=== PATIENT | male | born 1965 | race Caucasian/White ===

== ENCOUNTER 2024-01-26 07:24 | Emergency (ER) | payer OTHER ==
[~2024-01-26] VITALS: Ht 177.8 cm; Wt 79.0 kg
[2024-01-26] MEDS: TETanus/Pertussis (Acell)/Diphther VAC/PF (Tdap-Adult) 0.5ml syringe IMVAC ONE (07:49)
[2024-01-26] MEDS: LIDOcaine 1%/PF 5ML 10 MG/ML VIAL SQ ONE (07:53)
[2024-01-26] MEDS ORDERED: ceFAZolin 1gm IM kit IM ONE (08:15)
[2024-01-26] MEDS: ceFAZolin/D5W- 1GM premix 50 ML IV ONE (08:52)
[2024-01-26] MEDS: HYDROcodone/acetaminophen 5mg/325mg tablet PO ONE (09:45)
[2024-01-26] MEDS ORDERED: HYDR-3965 PO (09:50)
[2024-01-26] MEDS ORDERED: CEPH500C82 PO (09:50)
[2024-01-26 10:02] VITALS: BP 132/72; PULSE 78; RESP 14; TEMP 98.4; O2SAT 98
== END 2024-01-26 10:21 | disposition home or self-care (01) ==
LOC: ER 07:25
DX: S62.621A Displaced fracture of middle phalanx of left index finger, initial encounter for closed fracture (principal); Z79.2 Long term (current) use of antibiotics; W45.8XXA Other foreign body or object entering through skin, initial encounter; Y93.89 Activity, other specified; Y92.89 Other specified places as the place of occurrence of the external cause; Y99.8 Other external cause status
CPT/HCPCS: 12002; 73140; 90471; 90715; 96374; 99284; A6222; J0690; J3490; J7030; A6449